=== PATIENT | female | born 1985 | race Caucasian/White ===

== ENCOUNTER 2016-08-17 16:26 | Emergency (ER) | payer OTHER ==
[~2016-08-17] VITALS: Ht 172.7 cm; Wt 172.7 kg
[~2016-08-17 16:26] MED LIST: CEPH-512 PO; CYCL10TA9 PO; HYDR-4003 PO; MULT-666 PO
[2016-08-17 16:35] VITALS: PULSE 89; RESP 18; O2SAT 100
--- NOTE | 2016-08-17 17:16 | ED.REPORT ---
HPI-Back Pain Under 40 Date of Service Aug 17, 2016 ED Provider: Sander Houston PA-C Tammy is a 31-year-old female with a chief complaint of back pain. She reports 2 day history of left lower back pain that radiates to her left lower quadrant associated with bloating, nausea, 2 episodes of watery diarrhea today, chills. Admits urinary frequency but denies dysuria, hematuria. She reports her last menstrual period ended on the 12th. Denies vaginal bleeding and discharge, vomiting, bloody/tarry stools, fever, chest pain, palpitations, difficulty breathing. States that this feels like a previous kidney infection that she has had. Admits to a history of 2 C-sections, tubal ligation. Denies saddle anesthesia, loss of bowel/bladder control. Nursing Notes Stated Complaint: LEFT SIDE BACK PAIN Chief Complaint: Female Abdominal Pain Nursing Notes Reviewed: Yes Allergies: Coded Allergies: No Known Allergies (Verified , 08/17/16) Scheduled Cephalexin (Keflex) 500 Mg Capsule 500 MG PO QID Ondansetron ODT (Ondansetron ODT) 4 Mg Tab.rapdis 4-8 MG PO QID Scheduled PRN Cyclobenzaprine (Cyclobenzaprine) 10 Mg Tablet 10 MG PO TID PRN PRN Spasm Hydrocodone-Acetaminophen 5-325 mg (Hydrocodone-Acetaminophen 5-325 mg) 1 Each Tablet 1-2 TABLET PO Q4H PRN PRN For Pain Hydrocodone-Acetaminophen 5-325 mg (Hydrocodone-Acetaminophen 5-325 mg) 1 Each Tablet 2 TABLET PO QID PRN PRN For Pain Ibuprofen (Ibuprofen) 800 Mg Tablet 800 MG PO TID PRN PRN For Pain Miscellaneous Medications Multivitamin (Once Daily) 1 Each Tablet 1 EACH PO General Time Seen by MD: 16:54 Chief Complaint Flank pain left Sudden in Onset?: No Past Medical History Past Medical History Pyelonephritis Reports: Depression Past Surgical History C section x2 Family History noncontributory Smoking History Never Smoker Social History Alcohol Use: "Social" Drug Use: Denies drug use Other Social History: , Local resident Ambulatory Status Independent Review of Systems Review of Systems Note: General: Denies fever, chills, malaise. HEENT: Denies congestion, headache, sore throat. Respiratory: Denies dyspnea, cough, shortness of breath, wheezing. Cardiovascular: Denies chest pain, palpitations. Gastrointestinal: Denies vomiting, diarrhea, abdominal pain. Genitourinary: Admits frequency, denies urgency, dysuria, hematuria. Otherwise as noted in HPI. Physical Exam General: Well appearing, well developed, morbidly obese, no acute distress. Head: Atraumatic, normocephalic. Eyes: No scleral icterus or injection. No discharge. Vision grossly intact. ENT: Voice clear, hearing grossly intact. Respiratory: Regular rate and rhythm. Breath sounds present, clear to auscultation and equal bilaterally. No respiratory distress. No increased work of breathing, speaks in complete sentences. Cardiovascular: Regular rate and rhythm, without murmur, gallop or rub. No pedal edema. Gastrointestinal: Obese abdomen moderately tender in left lower quadrant without guarding or rebound. Bowel sounds normoactive. Skin: Warm and dry. Back: Normal to inspection and mild left lower back tenderness. No tenderness to percussion. Neurological: Gait normal. Negative straight leg raise, cross straight leg raise. Sensation and strength grossly intact in lower limbs. Grossly nonfocal. Psychological: Alert and oriented. Speech appropriate, linear and logical. Behavior appropriate. Initial Vital Signs Vital Signs (First) Date Time Temp Pulse Resp B/P Pulse Ox O2 Delivery O2 Flow Rate FiO2 08/17/16 16:35 36.7 89 18 100 Room Air 08/17/16 21:40 126/91 Initial VS: Reviewed, Vital signs normal Interpretation & Diagnostics Interpretation & Diagnostics: PROCEDURE: CT ABDOMEN AND PELVIS WITH CONTRAST ([id number]) INDICATIONS: left lower quadrant pain IMPRESSION: Overall, no acute abnormality. No specific visualized etiology for left lower quadrant pain. Appendix not clearly identified however no suspicious right lower quadrant inflammatory changes. Lab Results Interpretation Result Diagram: 08/17/16174608/17/16 174 Test 08/17/16 17:47 08/17/16 18:13 White Blood Count 6.5th/mm3 (3.8-10.1) Red Blood Count 4.57mil/mm3 (3.90-5.20) Hemoglobin 13.0g/dL (12.0-15.6) Hematocrit 39.6% (35.0-46.0) Mean Corpuscular Volume 86.7fL (81-100) Mean Corpuscular Hemoglobin 28.4pg (27.0-35.0) Mean Corpuscular Hemoglobin Concent 32.8% (32.0-37.0) Red Cell Distribution Width 13.1% (12.3-15.4) Platelet Count 288bil/L (150-400) Neutrophils (%) (Auto) 64.9% (40-74) Lymphocytes (%) (Auto) 26.8% (14-46) Monocytes (%) (Auto) 5.5% (4-12) Eosinophils (%) (Auto) 2.0% (0-5) Basophils (%) (Auto) 0.6% (0-3) Sodium Level 138mEq/L (134-144) Potassium Level 4.4mEq/L (3.5-5.2) Chloride Level 99mEq/L (97-108) Carbon Dioxide Level 25mmol/L (18-29) Blood Urea Nitrogen 12mg/dL (6-20) Creatinine 0.59mg/dL (0.57-1.00) Estimat Glomerular Filtration Rate 170mL/min (>59) Glucose Level 102mg/dL (60-99) Calcium Level 9.4mg/dL (8.5-10.1) Total Bilirubin 0.2mg/dL (0.0-1.2) Aspartate Amino Transf (AST/SGOT) 17U/L (0-50) Alanine Aminotransferase (ALT/SGPT) 23U/L (0-32) Alkaline Phosphatase 92U/L (25-150) Total Protein 7.4g/dL (6.4-8.4) Albumin 4.5g/dL (3.4-5.0) Hold Sparks Top Tube Received (Received) Urine Color Straw (YELLOW) Urine Appearance Clear (CLEAR,HAZY) Urine pH 5.5 (5.0-8.0) Urine Specific [place] 1.010 (1.003-1.035) Urine Protein Negativemg/dL (NEG,TRACE) Urine Glucose (UA) Negativemg/dL (NEGATIVE) Urine Ketones Negativemg/dL (NEGATIVE) Urine Occult Blood Trace (NEGATIVE) Urine Nitrite Negative (NEGATIVE) Urine Bilirubin Negative (NEGATIVE) Urine Urobilinogen Normalmg/dL (NORMAL) Urine Leukocyte Esterase Negative (NEGATIVE) Urine RBC 0-2/hpf (0-2) Urine WBC 0-5/hpf (0-5) Urine Epithelial Cells None/hpf (NONE-MOD) Urine Crystals None seen (NONE SEEN) Urine Bacteria Few/hpf (NONE-FEW) Urine Hyaline Casts None/lpf (NONE) Urine Granular Casts None seen (NONE SEEN) Urine Waxy Casts None seen (NONE SEEN) Urine Red Blood Cell Casts None seen (NONE SEEN) Urine White Blood Cell Casts None seen (NONE SEEN) Urine Mucus None seen (None Seen) Urine Trichomonas None seen (NONE SEEN) Urine Yeast None (NONE SEEN) Urinalysis Comment None Urine Culture Reflexed Not indicated Re-Eval/Medical Decision Med Decision/Clinical Course Morbidly obese 31-year-old female with chief complaint of left back, flank and lower quadrant pain. See with bloating, nausea, watery diarrhea for 2 days. Physical examination reveals mild left flank tenderness as well as lower left quadrant tenderness without peritoneal signs. CBC, CMP and urinalysis are normal. CT does not reveal source for pain. This point do not think the pain is caused by dangerous condition such as pyelonephritis, nephrolithiasis, diverticulitis, pancreatitis, cauda equina, epidural abscess. Discharge patient with a prescription for Zofran, extra strength ibuprofen, advising primary care follow-up and given return precautions. Discussed this with the patient who understands and is comfortable with the plan. Discharge & Departure Impression: Primary Impression: Gastroenteritis Disposition: Home All VS Reviewed: Yes Condition: Stable Patient Instructions: Acute Abdominal Pain (ED) Additional Instructions: Evaluation for back and abdominal pain the emergency department. Blood tests and urinalysis all came back normal, which is reassuring that this is unlikely to be due to a dangerous condition. Neurological examination is normal. We performed a CT scan which was normal. At this time we can rule out immediately dangerous causes of your pain. Most likely this is caused by a viral gastroenteritis which should pass on its own in a few days. I will give you a prescription for Zofran to help with nausea. Rest and drink small amounts of fluid throughout the day. eat small amounts of bland food as tolerated. The pain is best treated with 800 mg of ibuprofen every 8 hours, or 1000 mg of acetaminophen (Tylenol) every 6 hours. These drugs can be taken at the same time for more severe pain.Please follow-up with your primary care physician. Return to emergency department for new or worsening symptoms including increasing pain, uncontrollable vomiting, loss of bowel/bladder control or numbness between your legs. Referrals: [facility] (PCP) EDSupervising Provider for APC: Isaiah Francois MD Attending Statement I discussed patient with PEACE Houston. He asked me to evaluate patient and I saw and evaluated patient independently. I agree with plan as above. In brief left lower quadrant pain 3 days gradual onset with associated diarrhea and some nausea. Very mild left lower quadrant tenderness with no rebound or guarding. Normal white blood cell count. Urine trace blood negative nitrates or leukocytes. Gave patient the option of CT abdomen which she declined. Patient's pain improved with IV pain medications. Possibly viral gastroenteritis. We will discharge home with return precautions. Sander Houston PA-C Aug 17, 2016 17:16 Isaiah Francois MD Aug 17, 2016 19:03
[2016-08-17 17:54] LABS: BASOPHILS % (AUTO) 0.6 % (0-3); MONOCYTES % (AUTO) 5.5 % (4-12); Mean Corpuscular Hemoglobin 28.4 pg (27.0-35.0); Mean Corpuscular Volume 86.7 fL (81-100); NEUTROPHILS % (AUTO) 64.9 % (40-74); Platelet Count 288 bil/L (150-400)
[2016-08-17 18:37] LABS: APPEARANCE,URINE CLEAR (CLEAR,HAZY); COLOR,URINE STRAW (YELLOW); OCCULT BLOOD,URINE TRACE (NEGATIVE); PH,URINE 5.5 (5.0-8.0); UROBILINOGEN,URINE NORMAL (NORMAL)
[2016-08-17] MEDS ORDERED: Ondansetron 2 mg/mL 2 mL Inj IVPUSH ONE (19:05)
--- NOTE | 2016-08-17 20:48 | DRSVH ---
PROCEDURE: CT ABDOMEN AND PELVIS WITH CONTRAST ([id number]) INDICATIONS: left lower quadrant pain TECHNIQUE: After the administration of intravenous contrast, 5 mm thick sections acquired from the diaphragm to the symphysis. 5 mm coronal and sagittal reformats were acquired. For radiation dose reduction, the following was used: automated exposure control, adjustment of mA and/or kV according to patient siz e. COMPARISON: None. FINDINGS: Image quality: Suboptimal due to body habitus ABDOMEN: Lung bases: Lung bases are clear. Heart size is normal. Solid organs: Liver and spleen are normal in size and enhancement. Gallbladder unremarkable. Bilia ry system is non dilated. Pancreas enhances normally. No adrenal nodules. Kidneys demonstrate norm al size and enhancement, without hydronephrosis. Peritoneum and bowel: Bowel loops demonstrate normal wall thickness and caliber. No free fluid or a ir. Appendix not clearly identified however no pericecal inflammatory changes. Rectum is decompresse d otherwise unremarkable Nodes and vessels: No retroperitoneal or mesenteric adenopathy by size criteria. Aorta and inferior vena cava are normal in size. Miscellaneous: No ventral hernias. PELVIS: Genitourinary: Bladder wall thickness is normal. Miscellaneous: No inguinal hernias or adenopathy. Bones: No suspicious bony lesions. No vertebral body compression fractures. IMPRESSION: Overall, no acute abnormality. No specific visualized etiology for left lower quadrant pain. Appendix not clearly identified however no suspicious right lower quadrant inflammatory changes. Dictated by: Praveen Galindo M.D. on 08/17/2016 at 20:43 Approved by: Praveen Galindo M.D. on 08/17/2016 at 20:47
[2016-08-17] MEDS ORDERED: ONDA4TAB12 PO (21:19)
[2016-08-17] MEDS ORDERED: IBUP800T28 PO (21:19)
[2016-08-17 21:40] VITALS: BP 126/91; PULSE 82; RESP 20; O2SAT 86
== END 2016-08-17 21:40 | disposition home or self-care (01) ==
LOC: SED 16:26
DX: K52.9 Noninfective gastroenteritis and colitis, unspecified (principal); R35.0 Frequency of micturition
CPT/HCPCS: 36415; 74177; 80053; 81000; 81025; 85025; 96374; 96375; 96376; 99285; J2270; J2405; Q9967

== ENCOUNTER 2016-12-25 21:23 | Emergency (ER) | payer OTHER ==
[~2016-12-25] VITALS: Ht 172.7 cm; Wt 159.1 kg
[~2016-12-25 21:23] MED LIST changes: +IBUP800T28 PO; +ONDA4TAB12 PO
[2016-12-25 21:41] VITALS: BP 137/93; PULSE 121; RESP 20; O2SAT 98
--- NOTE | 2016-12-25 22:08 | ED.REPORT ---
HPI-Allergic Reaction Date of Service Dec 25, 2016 ED Provider: Satish Aguayo DO Patient is a 31 year old female who presents to the ED complaining of a rash on both arms and chest onset 2 weeks ago. Associated symptoms include subjective throat swelling, subjective dyspnea, dizziness and tingling of her lips. Patient reports that she was seen 2 weeks ago when it was just on her left arm and given a cream but it has progressively gotten worse and continued to spread. Nursing Notes Stated Complaint: DIFFICULTY BREATHING, FULL BODY RASH Chief Complaint: Allergic Reaction Nursing Notes Reviewed: Yes Allergies: Coded Allergies: No Known Allergies (Verified , 08/17/16) Scheduled Cephalexin (Keflex) 500 Mg Capsule 500 MG PO QID Ondansetron ODT (Ondansetron ODT) 4 Mg Tab.rapdis 4-8 MG PO QID Scheduled PRN Cyclobenzaprine (Cyclobenzaprine) 10 Mg Tablet 10 MG PO TID PRN PRN Spasm Hydrocodone-Acetaminophen 5-325 mg (Hydrocodone-Acetaminophen 5-325 mg) 1 Each Tablet 1-2 TABLET PO Q4H PRN PRN For Pain Hydrocodone-Acetaminophen 5-325 mg (Hydrocodone-Acetaminophen 5-325 mg) 1 Each Tablet 2 TABLET PO QID PRN PRN For Pain Ibuprofen (Ibuprofen) 800 Mg Tablet 800 MG PO TID PRN PRN For Pain Miscellaneous Medications Multivitamin (Once Daily) 1 Each Tablet 1 EACH PO General Time Seen by MD: 22:08 Chief Complaint Rash Hx Obtained From: Patient Arrived By: Walk-in Onset Occurred: More than a week ago... (2 weeks) Symptom Duration: Since onset Progression Since Onset: Gradually worsening Location: : Arm left: Arm right Quality: Itching Severity: Current: Moderate Recent Healthcare: No recent hospitalization, Recent doctor visit Similar Sx Previous: Yes Past Medical History Past Medical History Pyelonephritis Reports: Depression Past Surgical History C section x2 Family History noncontributory Smoking History Never Smoker Social History Alcohol Use: "Social" Drug Use: Denies drug use Other Social History: , Local resident Ambulatory Status Independent Review of Systems Constitutional: Denies: Chills, Fever Ears / Nose / Throat: Reports: Throat swelling Respiratory: Denies: Non-productive cough, Shortness of breath Skin: Reports Itching, Reports Rash Allergy / Immune: Denies: Rhinorrhea Neurologic: Reports: Dizziness, Numbness, Denies: Weakness Complete sys rev & neg: except as marked. Physical Exam Initial Vital Signs Vital Signs (First) Date Time Temp Pulse Resp B/P Pulse Ox O2 Delivery O2 Flow Rate FiO2 12/25/16 21:41 36.8 121 20 137/93 98 Room Air Initial VS: Reviewed General/Constitutional: Awake, Alert, No acute distress Respiratory / Chest: Atraumatic, No respiratory distress diminished breath sounds bilaterally Cardiovascular: Heart rate NL, Regular rhythm, Heart sounds NL Skin: Warm, Dry urticaria bilateral upper extremities Head / Eyes: Atraumatic, Normocephalic, PERRL, EOMI ENT: Atraumatic, Airway patent, Mucous membranes moist, No facial swelling angioedema of uvula Neurologic: Oriented X3, Speech NL, No motor deficits, No sensory deficits Lower Extremity / Pelvis / MS: Atraumatic, Full range of motion Psychiatric: Affect NL, Mood NL Re-Eval/Medical Decision Med Decision/Clinical Course Epinephrine and steroids seem to do the trick. She had palpitations after the epinephrine and albuterol. EKG is reassuring. She had significant left arm pain with range of motion. MT and dissection highly unlikely. The pain was fully reproducible with range of motion and [place] took the pain away. I am concerned that she has a allergy to ibuprofen so I have her stop taking ibuprofen. She was sent home with a [place] take home pack and a prescription for an EpiPen. Recommend follow-up with primary care and allergy for allergy testing. Re-Evaluation/Progress #1: Time of Eval: 23:25 Patient Status: Condition improved Re-Evaluation/Progress #2: Time of Eval: 00:04 Re-Evaluation/Progress Note: Uvular edema has resolved. Patient is feeling better Re-Evaluation/Progress #3: Time of Eval: 01:49 Re-Evaluation/Progress Note: Discussed plan for discharge. Patient understands and agrees to plan. All questions were addressed. Counseled Regarding: Diagnosis, Lab results, Need for follow-up, When/why to return to ED Discharge & Departure Primary Impression: Acute anaphylaxis Encounter type: initial encounter Qualified Code: T78.2XXA - Anaphylactic shock, unspecified, initial encounter Additional Impression: Left arm pain Disposition: Home Discharge Condition All VS Reviewed: Yes Condition: Stable Patient Instructions: Anaphylaxis (ED) Additional Instructions: I think you might be allergic to Motrin, so I recommend not taking it. Use 2 puffs of the Albuterol every 4 hours. Take Prednisone daily for 3 days. Use the epi pen as directed and keep it with you at all times. Do not drive tonight as you received pain medication in the ED. You can take 1-2 [place] every 6 hours as needed for pain. Do not drink alcohol or drive while taking the pain medication. Do not combine with Acetaminophen. Follow up with your primary care physician next week to have allergy testing performed. There is an allergy clinic referral attached. Return to the emergency department if you develop any new or worsening symptoms including difficulty breathing, difficulty swallowing or fever. Referrals: [facility] (PCP) [facility] Scribe Attestation Portions of this note were transcribed by Suri Suresh. I, Dr. Aguayo personally performed the history, physical exam and medical decision-making; I reviewed and confirmed the accuracy of the information in the transcribed note. Signed by: Deon Veronica, 12/25/16 and 9348 copies to: [facility] Todd P DO Dec 25, 2016 22:08 Luba Suresh Dec 25, 2016 22:34
[2016-12-25] MEDS ORDERED: Dexamethasone 10 mg/mL Inj IM ONE (22:25)
[2016-12-25] MEDS ORDERED: Albuterol-Ipratropium 3 mL Inhalation Solution NEB ONE (22:55)
[2016-12-25 23:11] VITALS: PULSE 125; RESP 20; O2SAT 100
[2016-12-25 23:51] VITALS: PULSE 119; RESP 24; O2SAT 96
[2016-12-26] MEDS ORDERED: HYDROcodone-APAP 5-325 mg Tablet PO ONE (00:15)
[2016-12-26] MEDS ORDERED: _HYDROcodone/APAP 5-325 mg Tablet PO PRN (01:45)
[2016-12-26] MEDS ORDERED: _Proair 200 Puff/8.5 GM Inhaler INHALATION PRN (01:45)
[2016-12-26 02:17] VITALS: BP 125/76; PULSE 102; RESP 22; O2SAT 100
== END 2016-12-26 02:26 | disposition home or self-care (01) ==
LOC: SED 21:23
DX: L50.0 Allergic urticaria (principal); M79.602 Pain in left arm; T78.2XXA Anaphylactic shock, unspecified, initial encounter; R06.02 Shortness of breath; Z87.448 Personal history of other diseases of urinary system
CPT/HCPCS: 94640; 94664; 96372; 99284; J0171; J1100; J1200; J7620

== ENCOUNTER 2017-03-23 19:58 | Emergency (ER) | payer OTHER ==
[~2017-03-23] VITALS: Ht 172.7 cm; Wt 163.6 kg
[2017-03-23 20:11] VITALS: BP 134/94; PULSE 112; RESP 18; O2SAT 100
--- NOTE | 2017-03-23 20:36 | ED.REPORT ---
HPI-Back Pain Under 40 Date of Service Mar 23, 2017 ED Provider: Javier Barron DO The pt is a 32 y/o female with hx of depression with self-mutilation who presents to the ED complaining of back pain onset an hour ago. The pt fell backwards when she tried to stop her autistic son from going outside, and hit her upper right mid back on a closet door jam. She took 500mg Tylenol and iced the area, which helped with the pain somewhat, but has continued to experience right-sided and low back pain. She describes the pain as muscle spasms and pain radiating from the midline back below her shoulder blade into her right thigh, in addition to numbness in her right leg. The pain is rated at 9/10 in severity. It is exacerbated by movement and relieved by sitting upright. The pt denies headache or dizziness. Nursing Notes Stated Complaint: BACK SPASMS Chief Complaint: Back Pain or Injury Nursing Notes Reviewed: Yes Allergies: Coded Allergies: ibuprofen (Verified Allergy, Unknown, Rash, difficulty breathing, 03/23/17) Scheduled Cephalexin (Keflex) 500 Mg Capsule 500 MG PO QID Ondansetron ODT (Ondansetron ODT) 4 Mg Tab.rapdis 4-8 MG PO QID Scheduled PRN Cyclobenzaprine (Cyclobenzaprine) 10 Mg Tablet 10 MG PO TID PRN PRN Spasm Cyclobenzaprine (Cyclobenzaprine) 10 Mg Tablet 10 MG PO TID PRN PRN Spasm Hydrocodone-Acetaminophen 5-325 mg (Hydrocodone-Acetaminophen 5-325 mg) 1 Each Tablet 1-2 TABLET PO Q4H PRN PRN For Pain Hydrocodone-Acetaminophen 5-325 mg (Hydrocodone-Acetaminophen 5-325 mg) 1 Each Tablet 2 TABLET PO QID PRN PRN For Pain Ibuprofen (Ibuprofen) 800 Mg Tablet 800 MG PO TID PRN PRN For Pain Miscellaneous Medications Multivitamin (Once Daily) 1 Each Tablet 1 EACH PO General Time Seen by MD: 21:12 Chief Complaint Back pain Hx Obtained From: Patient Arrived By: Wheelchair Sudden in Onset?: Yes Onset Occurred: 1 - 4 hours ago Symptom Duration: Since onset Recent Healthcare: No recent hospitalization, Recent doctor visit Similar Sx Previous: No Past Medical History Past Medical History Pyelonephritis Previous suicide attempt Reports: Depression (with self-mutilation) Past Surgical History x2 Family History noncontributory Smoking History Never Smoker Social History Lives with a , a son, and a daughter Alcohol Use: "Social" Drug Use: Denies drug use Other Social History: , Local resident Ambulatory Status Independent Review of Systems Constitutional: Denies: Fever Respiratory: Denies: Non-productive cough, Shortness of breath Cardiovascular: Denies: Chest pain GI: Denies: Abdominal pain, Vomiting Musculoskeletal: Reports: Back pain (right side), Extremity pain, Denies: Neck pain Neurologic: Reports: Numbness, Denies: Dizziness, Headache Complete sys rev & neg: except as marked. Eyes: Denies: Blurred bilateral Ears / Nose / Throat: Denies: Sore throat Skin: Denies Itching Allergy / Immune: Denies: Itching Physical Exam Initial Vital Signs Vital Signs (First) Date Time Temp Pulse Resp B/P Pulse Ox O2 Delivery O2 Flow Rate FiO2 03/23/17 20:11 37.2 112 18 134/94 100 Room Air Initial VS: Reviewed Head / Eyes: Atraumatic, Normocephalic, PERRL Respiratory: Breath sounds normal, Clear to auscultation, No respiratory distress Cardiovascular: Heart sounds normal, Intact distal pulses Skin: Warm, Dry, No cyanosis Psychiatric: Mood/affect normal, Behavior normal General/Constitutional: Awake, Alert Appearance / Presentation: Positive: Obese, morbidly, Uncomfortable Back: Atraumatic point tenderness in the T3-T5 region right-sided lumbar paraspinous tenderness Neurologic: Oriented X3, Speech NL 4/5 strength on R arm and R leg 5/5 strength on L arm and L leg Neck: Atraumatic, Supple, Full range of motion, Non-tender Lower Extremity / Pelvis / MS: Full range of motion, Vascular intact Upper Extremity / MS: Full range of motion, Vascular intact Interpretation & Diagnostics CT THORACIC SPINE WITHOUT CONTRAST IMPRESSION: No visualized fracture. Dictated by: Vonnie Padgett M.D. on 03/23/2017 at 21:43 X-Ray Interpretation Xray Interpretation: X-RAY LUMBAR SPINE, 2 OR 3 VIEW IMPRESSION: Limited exam secondary to patient body habitus. No gross fractures identified. Dictated by: Vonnie Padgett M.D. on 03/23/2017 at 21:54 Interpretation / Wet Read by: Interpret - Radiologist Re-Eval/Medical Decision Source of Hx: Old records Re-Evaluation/Progress #1: Time of Eval: 22:43 Patient Status: Condition improved Re-Evaluation/Progress Note: Pt rechecked. Informed pt of diagnosis and plan for pain management. Re-Evaluation/Progress #2: Time of Eval: 23:55 Re-Evaluation/Progress Note: Informed plan for discharge. The pt understands and agrees with plan for discharge. F/U instructions and RTER warnings given. All questions addressed at this time. Counseled Regarding: Diagnosis, Lab results, Need for follow-up, When/why to return to ED Discharge & Departure Impression: Primary Impression: Low back pain Chronicity: acute Back pain laterality: right Sciatica presence: with sciatica Sciatica laterality: sciatica of right side Qualified Code: M54.41 - Lumbago with sciatica, right side Additional Impressions: Fall from ground level Upper back pain Muscle spasm Disposition: Home All VS Reviewed: Yes Condition: Stable Patient Instructions: Acute Low Back Pain (ED), Fall Prevention (ED), Lumbar Radiculopathy (ED) Additional Instructions: Thank you for trusting us with your care today. Your emergency department evaluation today including examination, CT scan, back x-ray are reassuring that there is no significant bony injury/fracture. The main concern will be the pain control and muscle spasm control. I will send you home with a prepack of hydrocodone and cyclobenzaprine Ice the area during the first 2 days. I highly recommend that you schedule a follow up appointment with your primary care physician in the next 2 days. Please return to the Emergency Department for any new or worsening symptoms. Referrals: [facility] (PCP) Scribe Attestation Portions of this note were transcribed by Janki Sinclair and Scout Man. I, Dr. Theodore Barron personally performed the history, physical exam and medical decision-making; I reviewed and confirmed the accuracy of the information in the transcribed note. Signed by: Deon Grajeda, 03/23/17. copies to: [facility] Gary R DO Mar 23, 2017 20:36 Janki Sicnlair Mar 23, 2017 21:15 SCOUT MAN Mar 23, 2017 22:31 Javier Barron DO Mar 23, 2017 20:36 Janki Sinclair Mar 23, 2017 21:15 SCOUT MAN Mar 23, 2017 22:31
[2017-03-23] MEDS ORDERED: HYDROcodone-APAP 10-325 mg PO ONE (21:10)
--- NOTE | 2017-03-23 21:46 | DRSVH ---
PROCEDURE: CT THORACIC SPINE WITHOUT CONTRAST ([id number]) INDICATIONS: T3-5 midline tenderness after fall on object TECHNIQUE: Noncontrast 3 mm thick sections acquired through the region of interest in the thoracic spine. Sagit jorje and coronal reformats were then constructed. For radiation dose reduction, the following was use d: automated exposure control. COMPARISON: None. FINDINGS: Image quality: Excellent. Bones: There is normal overall bony alignment. No acute vertebral body compression fractures. No s uspicious sclerotic or lytic bony lesions. Central spinal canal is of normal overall caliber. Soft tissues: No paravertebral masses or hematomas. Visualized posteromedial lungs appear clear. IMPRESSION: No visualized fracture. Dictated by: Vonnie Padgett M.D. on 03/23/2017 at 21:43 Approved by: Vonnie Padgett M.D. on 03/23/2017 at 21:44
--- NOTE | 2017-03-23 21:58 | DRSVH ---
PROCEDURE: X-RAY LUMBAR SPINE, 2 OR 3 VIEW INDICATIONS: low back pain after fall, RIGHT sided sciatica TECHNIQUE: 3 views of the lumbar spine were acquired. COMPARISON: None. FINDINGS: Limited exam secondary to significant patient body habitus. Bones: 5 [id number] vertebrae are present. There is a mild dextroconvex scoliotic curvature. No vertebral body compression fractures. No suspicious bony lesions. Degenerative disc and foraminal narrowing is noted L5-S1. Soft tissues: Overlying bowel gas pattern is normal. No suspicious soft tissue calcifications. IMPRESSION: Limited exam secondary to patient body habitus. No gross fractures identified. Dictated by: Vonnie Padgett M.D. on 03/23/2017 at 21:54 Approved by: Vonnie Padgett M.D. on 03/23/2017 at 21:56
[2017-03-23] MEDS ORDERED: _HYDROcodone/APAP 5-325 mg Tablet PO PRN (22:15)
[2017-03-23] MEDS ORDERED: oxyCODONE-Acetamin 10-325 mg Tablet PO ONE (23:35)
[2017-03-23] MEDS ORDERED: CYCL10TA9 PO (23:59)
[2017-03-24 00:29] VITALS: BP 135/86; PULSE 93; RESP 15; O2SAT 98
== END 2017-03-24 00:32 | disposition home or self-care (01) ==
LOC: SED 19:58
DX: M54.41 Lumbago with sciatica, right side (principal); M54.6 Pain in thoracic spine; W01.198A Fall on same level from slipping, tripping and stumbling with subsequent striking against other object, initial encounter; Y93.89 Activity, other specified; Y92.89 Other specified places as the place of occurrence of the external cause; Y99.8 Other external cause status; F32.9 Major depressive disorder, single episode, unspecified; Z88.6 Allergy status to analgesic agent
CPT/HCPCS: 72100; 72128; 96372; 99285; J1885